=== PATIENT | female | born 1950 | race Caucasian/White ===

== ENCOUNTER → 2018-10-14 | Outpatient (CLI) | payer MEDICARE, BC ==
[~2018-10-14] MED LIST: Aspirin EC81 MG; Benicar Hct 201 EACH; CLON.1; FAMO10; FURO20; Inderal60 MG; KETO15TC; METF500; Pravachol80 MG
[2018-10-18 15:07] LABS: HPV 16 Negative (Negative); HPV 18 Negative (Negative); HPV OTHER HR TYPES Negative (Negative)
== END | disposition home or self-care (01) ==
LOC: LAB 16:28 → LAB SHORT 16:28
PROVIDERS: Nurse Practitioner Women's Health
DX: Z12.4 Encounter for screening for malignant neoplasm of cervix (principal)
CPT/HCPCS: 87624; G0123

== ENCOUNTER → 2018-11-18 | Outpatient (CLI) | payer MEDICARE, BC | END | disposition home or self-care (01) | LOC: LAB SHORT 12:30 → PLD 12:30 | DX: N85.02 Endometrial intraepithelial neoplasia [EIN] (principal) | CPT/HCPCS: 88305 ==

== ENCOUNTER 2018-12-14 11:29 | Day surgery (SDC) | payer MEDICARE, BC ==
[~2018-12-14] VITALS: Ht 157.5 cm; Wt 73.6 kg
[~2018-12-14 11:29] MED LIST changes: +CHOL10002 PO; -CLON.1; +CLON.1 PO; +GLIM2 PO
--- NOTE | 2018-12-14 13:47 | NUR ---
12/14/18 1347 Reyna Bueno A 100CC NACL FLUID DEFICIT FROM HYSTEROSCOPY.
== END 2018-12-14 15:12 | disposition home or self-care (01) ==
LOC: ORSCSDS 11:29
PROVIDERS: Obstetrics & Gynecology Gynecology
PROC: 0UB98ZX Excision of Uterus, Via Natural or Artificial Opening Endoscopic, Diagnostic (ICD-10-PCS; principal; 2018-12-14 13:00)
PROC: 0UDB8ZX Extraction of Endometrium, Via Natural or Artificial Opening Endoscopic, Diagnostic (ICD-10-PCS; principal; 2018-12-14 13:00)
DX: N95.0 Postmenopausal bleeding (principal); N85.02 Endometrial intraepithelial neoplasia [EIN]; I10 Essential (primary) hypertension; E11.9 Type 2 diabetes mellitus without complications; Z79.899 Other long term (current) drug therapy; Z79.82 Long term (current) use of aspirin
CPT/HCPCS: 82947; 88305; J0690; J1100; J1885; J2250; J2405; J2704; J3010

== ENCOUNTER → 2019-10-19 | Outpatient (CLI) | payer MEDICARE, BC | END | disposition home or self-care (01) | LOC: PLD 09:09 → LAB SHORT 09:09 | DX: B35.1 Tinea unguium (principal); L60.2 Onychogryphosis | CPT/HCPCS: 88305; 88312 ==

== ENCOUNTER 2021-03-27 08:00 | Day surgery (SDC) | payer MEDICARE, BC ==
[~2021-03-27] VITALS: Ht 157.5 cm; Wt 71.6 kg
[~2021-03-27 08:00] MED LIST changes: -FURO20; +FURO20 PO
[2021-03-27] MEDS ORDERED: PRAVASTATIN SOD40 MG PO (09:21)
[2021-03-27] MEDS ORDERED: OLMESARTAN-HCT1 EAC5 PO (09:22)
== END 2021-03-27 10:40 | disposition home or self-care (01) ==
LOC: ORSCSDS 08:00
PROVIDERS: Orthopaedic Surgery
PROC: 0LN80ZZ Release Left Hand Tendon, Open Approach (ICD-10-PCS; principal; 2021-03-27 09:30)
DX: M65.332 Trigger finger, left middle finger (principal); E11.22 Type 2 diabetes mellitus with diabetic chronic kidney disease; I12.9 Hypertensive chronic kidney disease with stage 1 through stage 4 chronic kidney disease, or unspecified chronic kidney disease; N18.30 Chronic kidney disease, stage 3 unspecified; Z79.82 Long term (current) use of aspirin; Z79.899 Other long term (current) drug therapy
CPT/HCPCS: 82947; J2250; J2704; J3010; J7120

== ENCOUNTER → 2023-06-25 | Outpatient (CLI) | payer MEDICARE, BC ==
[~2023-06-25] MED LIST changes: +OLMESARTAN-HCT1 EAC5 PO; +PRAVASTATIN SOD40 MG PO
[2023-06-25 19:16] LABS: Creatinine Urine 54.4 mg/dL (27.00-270.00)
[2023-06-25 19:19] LABS: Microalbumin, Urine Quant. 5.49 mg/L (0.000-20.000)
== END ==
LOC: LAB SHORT 14:41 → LAB 14:41
PROVIDERS: Internal Medicine Nephrology
DX: N18.30 Chronic kidney disease, stage 3 unspecified (principal); N25.81 Secondary hyperparathyroidism of renal origin; E55.9 Vitamin D deficiency, unspecified; R76.9 Abnormal immunological finding in serum, unspecified; R94.5 Abnormal results of liver function studies; R94.6 Abnormal results of thyroid function studies; D51.8 Other vitamin B12 deficiency anemias; D52.8 Other folate deficiency anemias; D50.9 Iron deficiency anemia, unspecified
CPT/HCPCS: 81050; 82043; 82570; 84156